=== PATIENT | male | born 1970 | race Caucasian/White ===

== ENCOUNTER → 2023-10-18 07:20 | Outpatient (REF) | payer BC, SELFPAY ==
[2023-10-18 09:05] LABS: % Basophils 0.9 % (0-2); % Eosinophils 3.4 % (0-6); % Immature Granulocytes 0.2 % (0-0.5); % Lymphocytes 32.2 % (20.5-51.1); % Monocytes 11.2 % (1.7-9.3); % Neutrophils 52.1 % (42.2-75.2); Absolute Eosinophils 0.2 10^3/uL (0-0.7); Absolute Lymphocytes 1.5 10^3/uL (1.2-3.4); Absolute Monocytes 0.5 10^3/uL (0.1-0.6); Absolute Neutrophils 2.4 10^3/uL (1.4-6.5); Hematocrit 45.5 % (39.0-52.0); Hemoglobin 15.7 g/dL (13.0-18.0); Mean Corp Hgb Conc. 34.5 g/dL (33.0-37.0); Mean Corpuscular Hgb 28.8 pg (27.0-31.0); Mean Corpuscular Volume 83.3 fL (80.0-94.0); Mean Platelet Volume 9.2 fL (7.4-10.4); Nucleated Red Blood Cells % 0 % (-); Platelet Count 223 10^3/uL (130-400); Red Blood Cell Count 5.46 10^6/uL (4.70-6.10); Red Cell Dist. Width 13.5 % (11.5-14.5); White Blood Cell Count 4.7 10^3/uL (4.8-10.8)
[2023-10-18 09:27] LABS: ALT (SGPT) 24 U/L (0-50); AST (SGOT) 23 U/L (17-59); Albumin 4.3 g/dl (3.5-5.0); Alkaline Phosphatase 52 U/L (38-126); Blood Urea Nitrogen 14 mg/dl (9-20); Calcium 8.8 mg/dl (8.4-10.2); Carbon Dioxide 24 mmol/L (22-30); Chloride 109 mmol/L (98-107); Glucose 98 mg/dl (70-99); HDL Cholesterol 37 mg/dl; LDL Cholesterol, Calculated 168 mg/dl; Potassium 4.4 mmol/L (3.5-5.1); Sodium 139 mmol/L (135-145); Total Bilirubin 1.2 mg/dl (0.2-1.3); Total Cholesterol 239 mg/dl (50-199); Total Protein 6.9 g/dl (6.3-8.2); Triglyceride 174 mg/dl (10-149); Very Low Density Lipoprotein 34 mg/dl (0-30); eGFR > 60.00
[2023-10-18 09:56] LABS: PSA, Total - Screen 1.14 ng/ml (0.0-4.0); TSH 2.72 uIU/ml (0.47-4.68)
== END ==
LOC: REG 07:20
PROVIDERS: ATTENDING PHYSICIAN Nurse Practitioner Family; FAMILY PHYSICIAN Family Medicine
DX: Z00.00 Encounter for general adult medical examination without abnormal findings (principal); Z13.0 Encounter for screening for diseases of the blood and blood-forming organs and certain disorders involving the immune mechanism; I10 Essential (primary) hypertension; E78.2 Mixed hyperlipidemia; Z12.5 Encounter for screening for malignant neoplasm of prostate; E06.3 Autoimmune thyroiditis; E23.7 Disorder of pituitary gland, unspecified
CPT/HCPCS: 36415; 80053; 80061; 84439; 84443; 85025; G0103

== ENCOUNTER → 2023-12-16 09:44 | Outpatient (REF) | payer BC, SELFPAY | LOC: RAD 09:44 | PROVIDERS: ATTENDING PHYSICIAN Family Medicine | DX: R10.13 Epigastric pain (principal); K21.9 Gastro-esophageal reflux disease without esophagitis | CPT/HCPCS: 74221 ==

== ENCOUNTER → 2023-12-26 06:34 | Outpatient (REF) | payer BC, SELFPAY ==
[2023-12-26 08:17] LABS: ALT (SGPT) 23 U/L (0-50); AST (SGOT) 25 U/L (17-59); Albumin 4.4 g/dl (3.5-5.0); Alkaline Phosphatase 44 U/L (38-126); Blood Urea Nitrogen 15 mg/dl (9-20); Calcium 9.4 mg/dl (8.4-10.2); Carbon Dioxide 25 mmol/L (22-30); Chloride 102 mmol/L (98-107); Glucose 100 mg/dl (70-99); Potassium 4.3 mmol/L (3.5-5.1); Sodium 139 mmol/L (135-145); Total Bilirubin 1.4 mg/dl (0.2-1.3); Total Protein 6.8 g/dl (6.3-8.2); eGFR > 60.00
[2023-12-26 08:28] LABS: Free T4 1.38 ng/dl (0.78-2.19)
[2023-12-26 08:41] LABS: TSH 3.06 uIU/ml (0.47-4.68)
== END ==
LOC: REG 06:34
PROVIDERS: ATTENDING PHYSICIAN Nurse Practitioner Family
DX: E06.3 Autoimmune thyroiditis (principal); E23.7 Disorder of pituitary gland, unspecified
CPT/HCPCS: 36415; 80053; 84439; 84443

== ENCOUNTER → 2024-01-02 15:26 | Outpatient (REF) | payer BC, SELFPAY ==
[2024-01-04 15:31] LABS: H. pylori Antigen, Fecal Negative (Negative)
== END ==
LOC: REG 15:26
PROVIDERS: ATTENDING PHYSICIAN Family Medicine
DX: R10.13 Epigastric pain (principal)
CPT/HCPCS: 87338

== ENCOUNTER 2024-03-15 06:35 | Day surgery (SDC) | payer BC, SELFPAY ==
[2024-03-02 08:47] VITALS: BMI 31.0
[2024-03-02 09:59] LABS: Hematocrit 46.7 % (39.0-52.0); Hemoglobin 15.8 g/dL (13.0-18.0); Mean Corp Hgb Conc. 33.8 g/dL (33.0-37.0); Mean Corpuscular Hgb 29.2 pg (27.0-31.0); Mean Corpuscular Volume 86.3 fL (80.0-94.0); Mean Platelet Volume 9.1 fL (7.4-10.4); Platelet Count 259 10^3/uL (130-400); Red Blood Cell Count 5.41 10^6/uL (4.70-6.10); Red Cell Dist. Width 12.9 % (11.5-14.5); White Blood Cell Count 5.9 10^3/uL (4.8-10.8)
[2024-03-02 10:15] LABS: Blood Urea Nitrogen 15 mg/dl (9-20); Calcium 9.5 mg/dl (8.4-10.2); Carbon Dioxide 26 mmol/L (22-30); Chloride 105 mmol/L (98-107); Estimated Creatinine Clearance 91 ml/min; Glucose 99 mg/dl (70-99); Sodium 139 mmol/L (135-145); eGFR > 60.00
[2024-03-02 10:24] LABS: Potassium 4.7 mmol/L (3.5-5.1)
--- NOTE | 2024-03-03 14:55 | PTCARENOTE ---
Patients 03/02 EKG abnormal- reviewed by Dr. Vallejo, he requests PCP or cardio clearance preop. Josselin @ Dr. Leyva notified
[2024-03-15] VITALS (11 sets, daily range): BP systolic 120–162; BP diastolic 74–97; BMI 31.0
--- NOTE | 2024-03-15 07:15 | HP.FOC2 ---
Focused History & Physical
Chief Complaint
HPI:
Chief Complaint: Umbilical hernia
HPI / Indication for Planned Procedure: Patient is a 53-year-old male recently seen in outpatient surgical consultation for evaluation of umbilical hernia. He said a history of a small protrusion present just along the superior aspect of his
umbilical stalk for many years that has increased in size particularly over the last 2 years. He now experiences a aching discomfort from the umbilical area which radiates to the epigastrium worse with physical activity or heavy labor at work. He
presents today for scheduled operative correction of his symptomatic umbilical hernia
Relevant Past Medical History: Other (Hypertension, hyperlipidemia, hypothyroidism)
Relevant Social History: Negative
Relevant Family History: Negative
Relevant Past Surgical History: Positive for (Appendectomy, pilonidal cyst excision)
Review of Systems
Review of Pertinent Systems: All Systems Negative
Medication
See Medication form for detailed medications: Yes
Medication List (including Herbals & OTC):
amlodipine 5 mg tablet 5 mg PO DAILY 03/08/24
levothyroxine 100 mcg tablet (Synthroid) 100 mcg PO DAILY 03/08/24
Medications Reviewed: Yes
Allergies and Reactions
Patient has Allergies: No
Noted Allergies and Reactions:
Allergy/AdvReac Type Severity Reaction Status Date / Time
No Known Allergies Allergy Verified 03/08/24 15:24
Pertinent Physical Exam
All Other Systems: Negative
Head/Neck: Normal
Lungs: Normal
Heart: Normal
Abdomen: Other (Reducible umbilical hernia, 2 cm. Right lower quadrant surgical scar)
Extremities: Normal
Neurological: Normal
Diagnosis / Assessment
53-year-old male with symptomatic umbilical hernia presenting for scheduled operative correction
Plan / Procedure
Robotic assisted laparoscopic repair of umbilical hernia with mesh
Anesthesia/Sedation to be done by Anesthesia Provider: Yes
[2024-03-15] MEDS: NORMOSOL-R 1000 IV (08:32)
[2024-03-15] MEDS: TYLENOL 1000 MG PO (08:32)
--- NOTE | 2024-03-15 09:36 | W.SUR.PREOP ---
Pre-Operative Surgical Note
-
I have examined this patient prior to the performance of the scheduled procedure.
The patient's condition is unchanged from the time of the current History and
Physical and the patient is able to undergo the scheduled procedure.
--- NOTE | 2024-03-15 11:55 | W.IMMPOSTOP ---
Addendum entered and electronically signed by Yeison Corrigan MD 03/15/24 12:51:
#[id number]
Original Note:
Surgical Immed Post Op Note
-
Primary Surgeon: Meenu
Assisting Surgeon: Katie Oconnor - [facility]
Pre-op Diagnosis: UH
Post-op Diagnosis: UH/VH - 2.5cm
Procedure Performed: Robotic assisted laparoscopic IRLANDA umbilical/ventral hernia repair with mesh; soft mesh 14 x 10 cm
Anesthesia Type: GETA +0.25% Marcaine
Specimen / Cultures: None
Estimated Blood Loss: 6 mL
Complications: None immediate
Operative Findings: 2 separate fascial defects; umbilical hernia defect about 1 cm; ventral hernia 2 cm. 2.5 cm total length incorporating fascial bridge between hernia defects. Hernias closed with 0 PDS strata fix suture. Underlay preperitoneal
mesh repair soft mesh 14 cm x 10 cm oriented vertically secured with interrupted 2-0 Vicryl's. Peritoneal flap closed with 2-0 Monocryl STRATAFIX spiral. Omental adhesions right lower quadrant suprapubic area from history of open appendectomy. No
significant adhesions affecting operative procedure or requiring lysis for herniorrhaphy.
The assistance of Katie Oconnor PA-C was required due to the complexity of the procedure. During the procedure Katie Oconnor PA-C assisted with port placement, robotic instrumentation and suture/mesh material exchanges, and closure of the surgical
incision sites. I was present for the entirety of the operative procedure.
== END 2024-03-15 13:28 | disposition home or self-care (01) ==
LOC: SDS 06:35
PROVIDERS: ATTENDING PHYSICIAN Surgery; FAMILY PHYSICIAN Family Medicine
DX: K42.9 Umbilical hernia without obstruction or gangrene (principal); K43.9 Ventral hernia without obstruction or gangrene
CPT/HCPCS: 49591; 36415; 80048; 85027; 93005; C1781

== ENCOUNTER → 2024-05-04 06:33 | Day surgery (SDC) | payer BC, SELFPAY | LOC: GI 06:33 | PROVIDERS: ATTENDING PHYSICIAN Internal Medicine | DX: R10.13 Epigastric pain (principal); K29.50 Unspecified chronic gastritis without bleeding; K31.7 Polyp of stomach and duodenum | CPT/HCPCS: 43239; 88305; 88342 ==

== ENCOUNTER → 2024-05-27 06:23 | Outpatient (REF) | payer BC, SELFPAY ==
[2024-05-27 08:24] LABS: % Basophils 0.6 % (0-2); % Eosinophils 4.3 % (0-6); % Immature Granulocytes 0.4 % (0-0.5); % Lymphocytes 29.2 % (20.5-51.1); % Monocytes 9.9 % (1.7-9.3); % Neutrophils 55.6 % (42.2-75.2); Absolute Eosinophils 0.2 10^3/uL (0-0.7); Absolute Lymphocytes 1.6 10^3/uL (1.2-3.4); Absolute Monocytes 0.5 10^3/uL (0.1-0.6); Hematocrit 47.4 % (39.0-52.0); Hemoglobin 16.5 g/dL (13.0-18.0); Mean Corp Hgb Conc. 34.8 g/dL (33.0-37.0); Mean Corpuscular Hgb 29.8 pg (27.0-31.0); Mean Corpuscular Volume 85.6 fL (80.0-94.0); Mean Platelet Volume 9.1 fL (7.4-10.4); Nucleated Red Blood Cells % 0 % (-); Platelet Count 237 10^3/uL (130-400); Red Blood Cell Count 5.54 10^6/uL (4.70-6.10); Red Cell Dist. Width 12.7 % (11.5-14.5); White Blood Cell Count 5.4 10^3/uL (4.8-10.8)
[2024-05-27 09:36] LABS: TSH 4.43 uIU/ml (0.47-4.68)
[2024-05-27 10:30] LABS: ALT (SGPT) 31 U/L (0-50); AST (SGOT) 28 U/L (17-59); Albumin 4.7 g/dl (3.5-5.0); Alkaline Phosphatase 49 U/L (38-126); Blood Urea Nitrogen 15 mg/dl (9-20); Calcium 9.4 mg/dl (8.4-10.2); Carbon Dioxide 26 mmol/L (22-30); Chloride 102 mmol/L (98-107); Glucose 89 mg/dl (70-99); HDL Cholesterol 36 mg/dl; LDL Cholesterol, Calculated 172 mg/dl; Potassium 3.9 mmol/L (3.5-5.1); Sodium 143 mmol/L (135-145); Total Bilirubin 1.5 mg/dl (0.2-1.3); Total Cholesterol 254 mg/dl (50-199); Total Protein 7.1 g/dl (6.3-8.2); Triglyceride 232 mg/dl (10-149); Very Low Density Lipoprotein 46 mg/dl (0-30); eGFR > 60.00
== END ==
LOC: REG 06:23
PROVIDERS: ATTENDING PHYSICIAN Family Medicine
DX: Z00.00 Encounter for general adult medical examination without abnormal findings (principal); D72.819 Decreased white blood cell count, unspecified; I10 Essential (primary) hypertension; E78.2 Mixed hyperlipidemia; E03.9 Hypothyroidism, unspecified
CPT/HCPCS: 36415; 80053; 80061; 84443; 85025

== ENCOUNTER → 2024-10-13 15:00 | Outpatient (REF) | payer BC, SELFPAY ==
[2024-10-13 16:55] LABS: Free T4 1.35 ng/dl (0.78-2.19)
[2024-10-13 17:08] LABS: TSH 5.17 uIU/ml (0.47-4.68)
[2024-10-13 18:01] LABS: ALT (SGPT) 30 U/L (0-50); AST (SGOT) 26 U/L (17-59); Albumin 4.5 g/dl (3.5-5.0); Alkaline Phosphatase 50 U/L (38-126); Blood Urea Nitrogen 19 mg/dl (9-20); Calcium 8.5 mg/dl (8.4-10.2); Carbon Dioxide 28 mmol/L (22-30); Chloride 99 mmol/L (98-107); Glucose 84 mg/dl (70-99); Potassium 4.3 mmol/L (3.5-5.1); Sodium 138 mmol/L (135-145); Total Bilirubin 0.8 mg/dl (0.2-1.3); Total Protein 6.9 g/dl (6.3-8.2); eGFR > 60.00
== END ==
LOC: REG 15:00
PROVIDERS: ATTENDING PHYSICIAN Physician Assistant
DX: E06.3 Autoimmune thyroiditis (principal)
CPT/HCPCS: 36415; 80053; 84439; 84443

== ENCOUNTER → 2025-01-14 15:51 | Outpatient (REF) | payer BC, SELFPAY ==
[2025-01-14 17:49] LABS: TSH 2.39 uIU/ml (0.47-4.68)
== END ==
LOC: REG 15:51
PROVIDERS: ATTENDING PHYSICIAN Physician Assistant; FAMILY PHYSICIAN Family Medicine
DX: E06.3 Autoimmune thyroiditis (principal)
CPT/HCPCS: 36415; 84439; 84443

== ENCOUNTER → 2025-04-13 15:09 | Outpatient (REF) | payer BC, SELFPAY ==
[2025-04-13 15:50] LABS: Hematocrit 46.7 % (39.0-52.0); Hemoglobin 15.7 g/dL (13.0-18.0); Mean Corp Hgb Conc. 33.6 g/dL (33.0-37.0); Mean Corpuscular Volume 86.5 fL (80.0-94.0); Nucleated Red Blood Cells % 0 % (-); Platelet Count 299 10^3/uL (130-400); Red Cell Dist. Width 13.2 % (11.5-14.5)
[2025-04-13 16:11] LABS: ALT (SGPT) 27 U/L (0-50); AST (SGOT) 23 U/L (17-59); Albumin 5.2 g/dl (3.5-5.0); Alkaline Phosphatase 39 U/L (38-126); Blood Urea Nitrogen 26 mg/dl (9-20); Calcium 9.8 mg/dl (8.4-10.2); Carbon Dioxide 24 mmol/L (22-30); Chloride 106 mmol/L (98-107); Glucose 85 mg/dl (70-99); HDL Cholesterol 38 mg/dl; LDL Cholesterol, Calculated 175 mg/dl; Potassium 5.0 mmol/L (3.5-5.1); Sodium 140 mmol/L (135-145); Total Protein 7.9 g/dl (6.3-8.2); Very Low Density Lipoprotein 44 mg/dl (0-30); eGFR 59.73
[2025-04-13 16:42] LABS: PSA, Total - Screen 1.19 ng/ml (0.0-4.0)
== END ==
LOC: REG 15:09
PROVIDERS: ATTENDING PHYSICIAN Family Medicine
DX: Z00.00 Encounter for general adult medical examination without abnormal findings (principal); Z13.0 Encounter for screening for diseases of the blood and blood-forming organs and certain disorders involving the immune mechanism
CPT/HCPCS: 36415; 80053; 80061; 85025; G0103

== ENCOUNTER → 2025-04-25 15:21 | Outpatient (REF) | payer BC, SELFPAY ==
[2025-04-25 16:26] LABS: Blood Urea Nitrogen 13 mg/dl (9-20); Calcium 8.9 mg/dl (8.4-10.2); Carbon Dioxide 23 mmol/L (22-30); Chloride 105 mmol/L (98-107); Glucose 113 mg/dl (70-99); Potassium 4.0 mmol/L (3.5-5.1); Sodium 136 mmol/L (135-145); eGFR > 60.00
== END ==
LOC: REG 15:21
PROVIDERS: ATTENDING PHYSICIAN Family Medicine
DX: I10 Essential (primary) hypertension (principal)
CPT/HCPCS: 36415; 80048